=== PATIENT | male | born 1960 | race Caucasian/White ===

== ENCOUNTER 2017-04-01 14:12 | Inpatient (IN) | payer MEDICARE, MEDICAID ==
[~2017-04-01] VITALS: Ht 180.3 cm; Wt 72.4 kg
[2017-04-01] MEDS ORDERED: HYDROmorphONE 1 MG/ML SYG IV STA (14:20)
[2017-04-01] MEDS ORDERED: NITROGLYCERIN 2% 1 GM OINT PKT TD STA (14:20)
[2017-04-01] MEDS ORDERED: ONDANSETRON 4 MG INJ IV STA (14:20)
[2017-04-01] MEDS ORDERED: SOD CHLORIDE 0.9% 1,000 ML IV STA (14:30)
[2017-04-01] MEDS ORDERED: NITROGLYCERIN (SL) 0.4 MG TAB SL PRN ×2 (14:30→17:00)
[2017-04-01 14:46] LABS: ADD SCAN DIFF NO
[2017-04-01 14:51] LABS: BASOPHILS % 0.3 % (0.0-2.0); EOSINOPHILS # 0.1 10^3/ul (0.0-0.5); EOSINOPHILS % 0.9 % (0.0-7.0); HEMATOCRIT 43.3 % (42.0-52.0); HEMOGLOBIN 15.4 g/dl (14.0-18.0); LYMPHOCYTES # 2.2 10^3/ul (0.8-2.9); LYMPHOCYTES % 31.3 % (15.0-51.0); MEAN CORPUSCULAR HEMOGLOBIN 35.3 pg (29.0-33.0); MEAN CORPUSCULAR HGB CONC 35.6 g/dl (32.0-37.0); MEAN CORPUSCULAR VOLUME 99.3 fl (82.0-101.0); MEAN PLATELET VOLUME 9.9 fl (7.4-10.4); MONOCYTE # 0.5 10^3/ul (0.3-0.9); MONOCYTES % 7.5 % (0.0-11.0); NEUTROPHIL # 4.2 10^3/ul (1.6-7.5); NEUTROPHILS % 59.6 % (39.0-77.0); PLATELET COUNT 182 10^3/UL (140-415); RED BLOOD COUNT 4.36 10^6/ul (4.70-6.10); RED CELL DISTRIBUTION WIDTH 13.4 % (11.5-14.5); WHITE BLOOD COUNT 7.1 10^3/ul (4.8-10.8)
--- NOTE | 2017-04-01 14:58 | RADRPT ---
PROCEDURE: XR Chest. CLINICAL INDICATION: chest pain TECHNIQUE: Single frontal view of the chest was obtained COMPARISON: None FINDINGS: The heart and mediastinum are within normal limits. There is mild right lower lobe linear atelectasis. The lungs are otherwise clear. There is no pleural effusion or pneumothorax. RPTAT: AA IMPRESSION: Mild right lower lobe linear atelectasis. .Kyle Berrios MD, MD Date Time Electronically viewed and signed by .Kyle Berrios MD, on 04/01/2017 14:57 .S/
[2017-04-01 15:11] LABS: INR 0.93; PROTIME 12.5 Sec (12.2-14.2)
[2017-04-01 15:12] LABS: ANION GAP 21 (8-16); BLOOD UREA NITROGEN 14 mg/dl (7-20); CARBON DIOXIDE 25 mmol/L (21-31); CHLORIDE 105 mmol/L (97-110); CREATININE 1.01 mg/dl (0.61-1.24); GLUCOSE 120 mg/dl (70-220); POTASSIUM 3.9 mmol/L (3.5-5.1); SODIUM 147 mmol/L (135-144)
[2017-04-01 15:13] LABS: PARTIAL THROMBOPLASTIN TIME 31.3 Sec (25.0-35.0)
[2017-04-01] MEDS ORDERED: SIN25100 PO (15:21)
[2017-04-01] MEDS ORDERED: LEVE-5 PO (15:21)
[2017-04-01] MEDS ORDERED: RANI150T5 PO (15:22)
[2017-04-01] MEDS ORDERED: QUET100T PO (15:22)
[2017-04-01] MEDS ORDERED: TEMA30CA PO (15:23)
[2017-04-01] MEDS ORDERED: AMIT50TA3 PO (15:23)
[2017-04-01] MEDS ORDERED: LACT10SO5 PO (15:24)
[2017-04-01] MEDS ORDERED: MAGN400T27 PO (15:25)
[2017-04-01] MEDS ORDERED: ACLI400A2 IH (15:26)
[2017-04-01] MEDS ORDERED: OMEG1CAP55 PO (15:26)
[2017-04-01] MEDS ORDERED: NIT4 SL (15:27)
[2017-04-01] MEDS ORDERED: ZOF8 PO (15:27)
[2017-04-01] MEDS ORDERED: SIMV20TA PO (15:27)
[2017-04-01 15:28] LABS: TROPONIN-I < 0.012 ng/ml (0.00-0.12)
[2017-04-01] MEDS ORDERED: ESCI20TA PO (15:28)
[2017-04-01] MEDS ORDERED: HYDR-906 PO (15:28)
[2017-04-01] MEDS ORDERED: HYD25 PO (15:29)
[2017-04-01] MEDS ORDERED: TIZA4TAB PO (15:29)
[2017-04-01] MEDS ORDERED: ADV25050 INHALATION (15:30)
[2017-04-01] MEDS ORDERED: BEN50 PO (15:30)
[2017-04-01] MEDS ORDERED: ALBU18HF INHALATION (15:30)
[2017-04-01] MEDS ORDERED: OMEP20CA16 PO (15:31)
--- NOTE | 2017-04-01 15:40 | RADRPT ---
PROCEDURE: CT Brain without. CLINICAL INDICATION: Headache. Recent intracranial hemorrhage. TECHNIQUE: A CT of the brain was performed on a multi-slice CT scanner utilizing axial sections fr om the skull base through the vertex without contrast. Coronal and sagittal reconstructed images w ere provided. One or more of the following does reduction techniques were used: Automated exposure control; adjustment of the mA and/or kV according to patient size; use of the aorta of reconstructi on technique. Images were reviewed on a high-resolution PACS workstation. The exam CTDI = 45.01 mGy . The exam DLP = 810.25 mGy-cm. COMPARISON: None available FINDINGS: Study is limited by motion. Per technologist, the patient does not follow commands. There is mild global volume loss. The ventricles and sulci are symmetric in size and morphology. There is no mickey dence of intracranial hemorrhage, mass effect, edema or midline shift. No abnormal intra-axial or e xtra-axial fluid collections are seen. The wadsworth/white matter differentiation is well preserved. There is a small left posterior sphenoid mucosal retention cyst versus polyp. The paranasal sinuses are otherwise clear.. The mastoid air cells are clear. The surrounding soft tissue scalp and bony calvarium are intact and normal. IMPRESSION: 1. Study limited by motion artifact. 2. No evidence of intracranial hemorrhage. Recommend correlation with prior imaging. 3. No CT evidence of acute intracranial pathology. 4. Mild global volume loss 5. Small left sphenoid mucosal retention cyst or polyp. RPTAT: HJBF .Homero Vasquez MD, MD Date Time Electronically viewed and signed by .Homero Vasquez MD, MD on 04/01/2017 15:39 .B/
[2017-04-01 16:24] LABS: BARBITURATES Negative (NEGATIVE); BENZODIAZEPINES Positive (NEGATIVE); CANNABINOIDS Negative (NEGATIVE); COCAINE Negative (NEGATIVE)
[2017-04-01] MEDS ORDERED: ACETAMINOPHEN 325 MG TAB PO PRN (16:30)
[2017-04-01] MEDS ORDERED: ONDANSETRON 4 MG INJ IV PRN (16:30)
[2017-04-01 16:32] LABS: OPIATES Negative (NEGATIVE)
--- NOTE | 2017-04-01 16:46 | HP ---
Date/Time of Note Date/Time of Note DATE: 04/01/17 TIME: 16:40 Assessment/Plan VTE Prophylaxis VTE Prophylaxis Intervention: LMWH Lines/Catheters IV Catheter Type (from [facility]): Saline Lock Assessment/Plan Assessment/Plan 57 yo M with CP x 3days managed as follows 1. Chest pain r/o ACS 2. HTN 3. Multisubstance abuse (tobacco / meth) 4. Dyslipidemia 5. Bipolar d/o 6. GERD 7. COPD without exacerbation 8. Parkinson's PLAN: Telemetry admission, trend cardiac enzymes, 2d echo if none recently and possible cardiology consult for stress test. oxygen and nitroglycerin therapy as needed. Daily aspirin if no allergy or bleeding risk. Get lipid profile, magnesium and TSH levels in am. Substance use / tobacco Cessation Therapy: Pt. was lectured for greater than 3 minutes on the health risks of continued smoking and the benefits of cessation and this will continue to be reinforced throughout hospitalization. HPI/ROS Admit Date/Time Admit Date/Time 04/01/17 Hx of Present Illness 57-year-old male with a history of high blood pressure and dyslipidemia who comes into the emergency room today with complaints of 3 day history of anterior chest pain that is described as achy and intermittent. Patient does admit to regular amphetamine use, last use was yesterday. Pain is associated with occasional shortness of breath, no diaphoresis. Pain does affect his activity of daily living. Pain was relieved with medication given in the emergency room. Patient denies fever, cough, palpitations, dizziness, or syncopal episodes. Patient denies abdominal pain, dysuria or hematuria. Brain CT was done because patient had reported recent head bleed, however negative ROS 12 point review if systems was done and pertinent findings are as noted. PMH/Family/Social Past Medical History * Bipolar d/o * GERD * COPD * Parkinson's Medical History: high cholesterol, hypertension Social History Alcohol Use: occasionally Smoking Status: Current every day smoker Drug Use: other (meth) Exam/Review of Systems Vital Signs Vitals VS - Last 72 Hours, by Label Date Time Temp Pulse Resp B/P Pulse Ox O2 Delivery O2 Flow Rate FiO2 04/01/17 14:48 Nasal Cannula 2 04/01/17 14:14 98.7 72 22 143/89 98 Vital Signs Date Time Temp Pulse Resp B/P Pulse Ox O2 Delivery O2 Flow Rate FiO2 04/01/17 14:48 Nasal Cannula 2 04/01/17 14:14 98.7 72 22 143/89 98 Exam Exam Constitutional: alert, oriented Head: atraumatic, normocephalic Neck: non-tender, supple Respiratory: clear to auscultation Cardiovascular: regular rate and rhythm Gastrointestinal: S/ NT / ND / +BS Extremities: no edema, good radial pulses Labs Result Diagram: 04/01/17 1440 04/01/17 1440 Medications Medications Current Medications Lorazepam (Ativan) 1 mg ONCE ONCE IV ; Start 04/01/17 at 17:00; Stop 04/01/17 at 17:01 Procedures Procedures Laboratory Tests Test 04/01/17 14:40 04/01/17 15:45 White Blood Count 7.110^3/ul Red Blood Count 4.3610^6/ul Hemoglobin 15.4g/dl Hematocrit 43.3% Mean Corpuscular Volume 99.3fl Mean Corpuscular Hemoglobin 35.3pg Mean Corpuscular Hemoglobin Concent 35.6g/dl Red Cell Distribution Width 13.4% Platelet Count 78534^3/UL Mean Platelet Volume 9.9fl Neutrophils % 59.6% Lymphocytes % 31.3% Monocytes % 7.5% Eosinophils % 0.9% Basophils % 0.3% Nucleated Red Blood Cells % 0.0/100WBC Neutrophils # 4.210^3/ul Lymphocytes # 2.210^3/ul Monocytes # 0.510^3/ul Eosinophils # 0.110^3/ul Basophils # 0.010^3/ul Nucleated Red Blood Cells # 0.010^3/ul Prothrombin Time 12.5Sec Prothrombin Time Ratio 1.0 INR International Normalized Ratio 0.93 Activated Partial Thromboplast Time 31.3Sec Sodium Level 147mmol/L Potassium Level 3.9mmol/L Chloride Level 105mmol/L Carbon Dioxide Level 25mmol/L Anion Gap 21 Blood Urea Nitrogen 14mg/dl Creatinine 1.01mg/dl Glucose Level 120mg/dl Calcium Level 10.0mg/dl Troponin I < 0.012ng/ml Urine Opiates Screen Negative Urine Barbiturates Negative Urine Amphetamines Screen Negative Urine Benzodiazepines Screen Positive Urine Cocaine Screen Negative Urine Cannabinoids Negative Current Medications Medications (Trade) Dose Ordered Sig/Francie Route PRN Reason Start Time Stop Time Status Last Admin Dose Admin Nitroglycerin (Nitroglycerin 2% Oint) 1 inch ONCE STAT TD 04/01/17 14:20 04/01/17 14:21 DC 04/01/17 14:46 1 INCH Nitroglycerin (Nitroglycerin (Sl Tab) 0.4 Mg) 1 tab Q5M UP TO 3 DOSES PRN SL CHEST PAIN 04/01/17 14:30 04/01/17 14:44 1 TAB Hydromorphone HCl (Dilaudid) 1 mg ONCE STAT IV 04/01/17 14:20 04/01/17 14:21 DC 04/01/17 14:43 1 MG Ondansetron HCl 4 mg 4 mg ONCE STAT IV 04/01/17 14:20 04/01/17 14:21 DC 04/01/17 14:44 4 MG Sodium Chloride (NS) 1,000 ml @ 1,000 mls/hr Q1H STAT IV 04/01/17 14:30 04/01/17 15:29 DC 04/01/17 14:48 1,000 MLS/HR Ondansetron HCl (Zofran Inj) 4 mg ER BRIDGE PRN IV NAUSEA AND/OR VOMITING 04/01/17 16:30 04/02/17 16:29 Acetaminophen (Tylenol Tab) 650 mg ER BRIDGE PRN PO MILD PAIN/FEVER 04/01/17 16:30 04/02/17 16:29 Lorazepam (Ativan) 1 mg ONCE ONCE IV 04/01/17 17:00 04/01/17 17:01 PROCEDURE: XR Chest. CLINICAL INDICATION: chest pain TECHNIQUE: Single frontal view of the chest was obtained COMPARISON: None FINDINGS: The heart and mediastinum are within normal limits. There is mild right lower lobe linear atelectasis. The lungs are otherwise clear. There is no pleural effusion or pneumothorax. RPTAT: AA IMPRESSION: Mild right lower lobe linear atelectasis. .Kyle Berrios MD, MD Date Time Electronically viewed and signed by .Kyle Berrios MD, MD on 04/01/2017 14: 57 .S/ CC: MADISON CONNER MD PROCEDURE: CT Brain without. CLINICAL INDICATION: Headache. Recent intracranial hemorrhage. TECHNIQUE: A CT of the brain was performed on a multi-slice CT scanner utilizing axial sections from the skull base through the vertex without contrast. Coronal and sagittal reconstructed images were provided. One or more of the following does reduction techniques were used: Automated exposure control; adjustment of the mA and/or kV according to patient size; use of the aorta of reconstruction technique. Images were reviewed on a high-resolution PACS workstation. The exam CTDI = 45.01 mGy. The exam DLP = 810.25 mGy-cm. COMPARISON: None available FINDINGS: Study is limited by motion. Per technologist, the patient does not follow commands. There is mild global volume loss. The ventricles and sulci are symmetric in size and morphology. There is no evidence of intracranial hemorrhage, mass effect, edema or midline shift. No abnormal intra-axial or extra-axial fluid collections are seen. The wadsworth/white matter differentiation is well preserved. There is a small left posterior sphenoid mucosal retention cyst versus polyp. The paranasal sinuses are otherwise clear.. The mastoid air cells are clear. The surrounding soft tissue scalp and bony calvarium are intact and normal. IMPRESSION: 1. Study limited by motion artifact. 2. No evidence of intracranial hemorrhage. Recommend correlation with prior imaging. 3. No CT evidence of acute intracranial pathology. 4. Mild global volume loss 5. Small left sphenoid mucosal retention cyst or polyp. RPTAT: HJBF .Homero Vasquez MD, MD Date Time Electronically viewed and signed by .Homero Vasquez MD, MD on 2016 15:39 .B/ CC: MADISON CONNER MD, B[place]AT[place] M. Apr 01, 2017 16:46
[2017-04-01] MEDS ORDERED: TIZANIDINE 4 MG TAB PO PRN (17:00)
[2017-04-01] MEDS ORDERED: LORAZEPAM 2 MG INJ IV ONE (17:00)
[2017-04-01] MEDS ORDERED: DIPHENHYDRAMINE 50 MG CAP PO PRN (17:00)
[2017-04-01] MEDS ORDERED: ALBUTEROL 18 GM INHALER INH PRN (17:00)
[2017-04-01 17:14] VITALS: TEMP 98.2
[2017-04-01 17:25] VITALS: BP 110/60; PULSE 66; RESP 18
--- NOTE | 2017-04-01 17:37 | ERA ---
ER Documentation Chief Complaint Date/Time DATE: 04/01/17 TIME: 17:34 Chief Complaint CHEST PAIN FOR THE PAST 3 DAYS.NO COUGH OR CONGESTION. N/N NOTED. HPI Patient is a 57-year-old male with hypertension and coronary disease who presents with chest pain. The patient came from [facility]. He was brought in by ambulance. He says "I still have a headache in my brain was bleeding a few days ago". He has vomiting as well. He was sent to the ER because of chest pain which lasted 4 days. He also says that he cannot keep anything down because of the vomiting. Upon review of old medical records this is the patient's first visit to the emergency department. He does not know the name of his primary doctor. ROS All systems reviewed and are negative except as per history of present illness. Medications Home Meds Reported Medications Omeprazole* (Omeprazole*) 20 Mg Capsule.dr, 20 MG PO DAILY, #30 CAP 04/01/17 Diphenhydramine Hcl* (Benadryl*) 50 Mg Cap, 50 MG PO TID Y for ITCHING, CAP 04/01/17 Salmeterol Xinaf/Fluticasone* (Advair*) 250-50 Diskus Inhaler, 1 INH INHALATION BID, #1 INHALER 04/01/17 Albuterol Sulfate* (Ventolin HFA*) 18 Gm Hfa.aer.ad, 2 PUFF INHALATION TID Y for SHORTNESS OF BREATH, #1 INHALER 04/01/17 Hydrochlorothiazide* (Hydrochlorothiazide*) 25 Mg Tab, 25 MG PO DAILY, #30 TAB 04/01/17 Tizanidine Hcl* (Tizanidine Hcl*) 4 Mg Tablet, 4 MG PO Q8H Y for SPASTICITY, TAB 04/01/17 Hydrocodone/Acetaminophen ([place] 5-325 Tablet) 1 Each Tablet, 1 EACH PO Q6 Y for PAIN, TAB 04/01/17 Escitalopram Oxalate* (Lexapro*) 20 Mg Tablet, 20 MG PO DAILY, #30 TAB 04/01/17 Ondansetron Hcl* (Zofran*) 8 Mg Tab, 8 MG PO Q8 Y for NAUSEA AND/OR VOMITING, TAB 04/01/17 Simvastatin* (Zocor*) 20 Mg Tablet, 20 MG PO QHS, #30 TAB 04/01/17 Nitroglycerin* (Nitrostat*) 0.4 Mg Tab.subl, 0.4 MG SL Q5MIN Y for CHEST PAIN, BOTTLE 04/01/17 Aclidinium [place] (Tudorza Pressair) 400 Mcg Aer.pow.ba, 400 MCG IH BID, EA 04/01/17 [place]-3/Dha/Epa/Fish Oil (FISH OIL EC 1,000 MG SOFTGEL) 1 Each Capsule.dr, 4 EACH PO DAILY 04/01/17 Magnesium Oxide* (Mag-Oxide*) 400 Mg Tablet, 250 MG PO BID, TAB 04/01/17 Lactulose* (Lactulose*) 10 Gm/15 Ml Solution, 10 GM PO BID, ML 04/01/17 Temazepam* (Temazepam*) 30 Mg Capsule, 30 MG PO HS Y for INSOMNIA, CAP 04/01/17 Amitriptyline Hcl* (Amitriptyline Hcl*) 50 Mg Tablet, 50 MG PO QHS, #30 TAB 04/01/17 Ranitidine Hcl* (Ranitidine Hcl*) 150 Mg Tablet, 150 MG PO Q12, #60 TAB 04/01/17 Quetiapine Fumarate* (Seroquel*) 100 Mg Tablet, 100 MG PO HS, #30 TAB 04/01/17 Carbidopa-Levodopa* (Sinemet*) 25-100 Mg Tab, 1 TAB PO TID, TAB 04/01/17 Levetiracetam* (Keppra*) 500 Mg Tablet, 500 MG PO BID, TAB 04/01/17 Allergies Allergies: Coded Allergies: No Known Allergy (Unverified , 04/01/17) PMhx/Soc History of Surgery: Yes (HERNIA ) Anesthesia Reaction: No Hx Cardiac Disorders: Yes (HTN) Hx Miscellaneous Medical Probl: Yes (GERD, CP) Hx Alcohol Use: Yes Hx Substance Use: Yes Hx Tobacco Use: Yes Smoking Status: Current every day smoker FmHx Family History: coronary disease Physical Exam Vitals Vital Signs Date Time Temp Pulse Resp B/P Pulse Ox O2 Delivery O2 Flow Rate FiO2 04/01/17 17:14 98.2 67 20 109/67 99 Room Air 04/01/17 16:23 98.7 68 22 109/67 98 04/01/17 14:48 Nasal Cannula 2 04/01/17 14:14 98.7 72 22 143/89 98 Physical Exam Const: Moderate distress secondary to vomiting Head: Atraumatic Eyes: Normal Conjunctiva ENT: Normal External Ears, Nose and Mouth. Neck: Full range of motion..~ No meningismus. Resp: Clear to auscultation bilaterally Cardio: Regular rate and rhythm, no murmurs Abd: Soft, non tender, non distended. Normal bowel sounds Skin: Diaphoresis Back: No midline or flank tenderness Ext: No cyanosis, or edema Neur: Awake and alert Psych: Normal Mood and Affect Result Diagram: 04/01/17 1440 04/01/17 1440 Results 24 hrs Laboratory Tests Test 04/01/17 14:40 04/01/17 15:45 White Blood Count 7.110^3/ul Red Blood Count 4.3610^6/ul Hemoglobin 15.4g/dl Hematocrit 43.3% Mean Corpuscular Volume 99.3fl Mean Corpuscular Hemoglobin 35.3pg Mean Corpuscular Hemoglobin Concent 35.6g/dl Red Cell Distribution Width 13.4% Platelet Count 99628^3/UL Mean Platelet Volume 9.9fl Neutrophils % 59.6% Lymphocytes % 31.3% Monocytes % 7.5% Eosinophils % 0.9% Basophils % 0.3% Nucleated Red Blood Cells % 0.0/100WBC Neutrophils # 4.210^3/ul Lymphocytes # 2.210^3/ul Monocytes # 0.510^3/ul Eosinophils # 0.110^3/ul Basophils # 0.010^3/ul Nucleated Red Blood Cells # 0.010^3/ul Prothrombin Time 12.5Sec Prothrombin Time Ratio 1.0 INR International Normalized Ratio 0.93 Activated Partial Thromboplast Time 31.3Sec Sodium Level 147mmol/L Potassium Level 3.9mmol/L Chloride Level 105mmol/L Carbon Dioxide Level 25mmol/L Anion Gap 21 Blood Urea Nitrogen 14mg/dl Creatinine 1.01mg/dl Glucose Level 120mg/dl Calcium Level 10.0mg/dl Troponin I < 0.012ng/ml Urine Opiates Screen Negative Urine Barbiturates Negative Urine Amphetamines Screen Negative Urine Benzodiazepines Screen Positive Urine Cocaine Screen Negative Urine Cannabinoids Negative Current Medications Medications (Trade) Dose Ordered Sig/Francie Route PRN Reason Start Time Stop Time Status Last Admin Dose Admin Nitroglycerin (Nitroglycerin 2% Oint) 1 inch ONCE STAT TD 7/10/17 14:20 04/01/17 14:21 DC 04/01/17 14:46 Nitroglycerin (Nitroglycerin (Sl Tab) 0.4 Mg) 1 tab Q5M UP TO 3 DOSES PRN SL CHEST PAIN 04/01/17 14:30 04/01/17 14:44 Hydromorphone HCl (Dilaudid) 1 mg ONCE STAT IV 04/01/17 14:20 04/01/17 14:21 DC 04/01/17 14:43 Ondansetron HCl 4 mg 4 mg ONCE STAT IV 04/01/17 14:20 04/01/17 14:21 DC 04/01/17 14:44 Sodium Chloride (NS) 1,000 ml @ 1,000 mls/hr Q1H STAT IV 04/01/17 14:30 04/01/17 15:29 DC 04/01/17 14:48 Ondansetron HCl (Zofran Inj) 4 mg ER BRIDGE PRN IV NAUSEA AND/OR VOMITING 04/01/17 16:30 04/02/17 16:29 Acetaminophen (Tylenol Tab) 650 mg ER BRIDGE PRN PO MILD PAIN/FEVER 04/01/17 16:30 04/02/17 16:29 Lorazepam (Ativan) 1 mg ONCE ONCE IV 04/01/17 17:00 04/01/17 17:01 DC 04/01/17 17:09 Albuterol (Proventil (O.r. Use Only)) 2 puff TID PRN ZFS SHORTNESS OF BREATH 04/01/17 17:00 UNV Amitriptyline HCl (Elavil) 50 mg QHS PO 04/01/17 21:00 UNV Carbidopa/Levodopa (Sinemet (25/ 100)) 1 tab TID PO 04/01/17 21:00 UNV Diphenhydramine HCl (Benadryl) 50 mg TID PRN PO ITCHING 04/01/17 17:00 UNV Escitalopram Oxalate (Lexapro) 20 mg DAILY PO 04/02/17 09:00 UNV Hydrochlorothiazide (Hydrochlorothiazide) 25 mg DAILY PO 04/02/17 09:00 UNV Acetaminophen/ Hydrocodone Bitart ([place] (5/325)) 1 tab Q6 PRN PO PAIN 04/01/17 17:00 UNV Lactulose (Enulose) 10 gm BID PO 04/01/17 21:00 UNV Levetiracetam (Keppra) 500 mg BID PO 04/01/17 21:00 UNV Magnesium Oxide (Mag-Ox 400) 250 mg BID PO 04/01/17 21:00 UNV Nitroglycerin (Nitroglycerin (Sl Tab) 0.4 Mg) 1 tab [id number] PRN SL CHEST PAIN 04/01/17 17:00 UNV Fish Oil (Fish Oil) 1,000 mg DAILY PO 04/02/17 09:00 UNV Quetiapine Fumarate (Seroquel) 100 mg HS PO 04/01/17 21:00 UNV Ranitidine HCl (Zantac) 150 mg Q12 PO 04/01/17 21:00 UNV Salmeterol Xinafoate/ Fluticasone (Advair 250/50 Diskus) 1 inh BID INH 04/01/17 21:00 UNV Tizanidine HCl (Zanaflex) 4 mg Q8H PRN PO SPASTICITY 04/01/17 17:00 UNV Miscellaneous Information 20 mg QHS PO 04/01/17 21:00 UNV Miscellaneous Information 30 mg HS PRN PO INSOMNIA 04/01/17 17:00 UNV Procedures/MDM EKG #1 read by me: Rate/Rhythm: Regular rate and rhythm at a normal rate Intervals: Normal Impression: No evidence of ischemia or arrhythmia EKG #2 read by me: Rate/Rhythm: Regular rate and rhythm at a normal rate Intervals: Normal Impression: No evidence of ischemia or arrhythmia Chest x-ray shows no pneumonia or pneumothorax per radiology. CT brain negative for intracranial bleed per radiology. Smoking Cessation Therapy: Pt. was lectured for greater than 3 minutes on the health risks of continued smoking and the benefits of cessation. Patient is a 57-year-old male with multiple cardiac risk factors including coronary disease, hypertension, family history of coronary disease, and smoking who presents with chest pain. The patient was given aspirin, nitroglycerin, and Dilaudid for pain. The patient will need further workup for the cause of his chest pain as I am concerned for potential acute coronary syndrome. I doubt pneumonia, pneumothorax, pulmonary elbows on, or aortic dissection at this time. CT scan of the brain was negative for intracranial bleed. I spoke with Dr. Vale from the panel team for admission as the patient has never been admitted before. Departure Diagnosis: Primary Impression: Chest pain Qualified Code: R07.9 - Chest pain, unspecified type Condition: MADISON Rosario MD Apr 01, 2017 17:37
[2017-04-01 18:18] LABS: ALBUMIN 5.2 g/dl (3.3-4.9); BILIRUBIN,INDIRECT 0.5 mg/dl (0-1.1); BILIRUBIN,TOTAL 0.5 mg/dl (0.2-1.3); TOTAL PROTEIN 7.7 g/dl (6.1-8.1)
[2017-04-01 18:36] VITALS: Ht 180.3 cm; Wt 72.4 kg
[2017-04-01] MEDS ORDERED: ZOLPIDEM 5 MG TAB PO PRN (19:00)
[2017-04-01 19:38] VITALS: BP 123/58; RESP 20
[2017-04-01 21:16] VITALS: PULSE 62
[2017-04-01] MEDS: AMITRIPTYLINE 50 MG TAB PO SCH (21:29)
[2017-04-01] MEDS: CARBIDOPA/LEVODOPA (25/100) TAB PO SCH (21:29)
[2017-04-01] MEDS: ATORVASTATIN 10 MG TAB PO SCH (21:29)
[2017-04-01] MEDS: LEVETIRACETAM 500 MG TAB PO SCH (21:29)
[2017-04-01] MEDS: RANITIDINE 150 MG TAB PO SCH (21:29)
[2017-04-01] MEDS: MAGNESIUM OXIDE 400 MG TAB PO SCH (21:29)
[2017-04-01] MEDS: LACTULOSE 30ML CUP PO SCH (21:29)
[2017-04-01] MEDS: QUETIAPINE 100 MG TAB PO SCH (21:29)
[2017-04-01] MEDS: SALMETEROL/FLUTICASONE 250/50 INHA INH SCH (21:30)
[2017-04-01 22:51] LABS: CREATINE KINASE 43 IU/L (23-200)
[2017-04-01 23:00] LABS: TROPONIN-I < 0.012 ng/ml (0.00-0.12)
[2017-04-02] VITALS (13 sets, daily range): BP systolic 87–113; BP diastolic 50–58; PULSE 43–76; RESP 18–20
[2017-04-02 03:13] LABS: CREATINE KINASE 34 IU/L (23-200)
[2017-04-02 03:27] LABS: TROPONIN-I < 0.012 ng/ml (0.00-0.12)
[2017-04-02] MEDS: RANITIDINE 150 MG TAB PO SCH ×2 (08:35→21:55)
[2017-04-02] MEDS: ESCITALOPRAM 10 MG TAB PO SCH (08:36)
[2017-04-02] MEDS: MAGNESIUM OXIDE 400 MG TAB PO SCH ×2 (08:36→21:55)
[2017-04-02] MEDS: FISH OIL 1,000 MG CAP PO SCH (08:36)
[2017-04-02] MEDS: LEVETIRACETAM 500 MG TAB PO SCH ×2 (08:36→21:55)
[2017-04-02] MEDS: LACTULOSE 30ML CUP PO SCH ×2 (08:37→21:55)
[2017-04-02] MEDS: SALMETEROL/FLUTICASONE 250/50 INHA INH SCH ×2 (08:37→21:55)
[2017-04-02] MEDS: CARBIDOPA/LEVODOPA (25/100) TAB PO SCH ×3 (08:37→21:55)
[2017-04-02] MEDS: HYDROCHLOROTHIAZIDE 25 MG TAB PO SCH (08:38)
[2017-04-02 09:38] LABS: ADD SCAN DIFF NO
[2017-04-02 09:45] LABS: BASOPHILS % 0.4 % (0.0-2.0); EOSINOPHILS # 0.1 10^3/ul (0.0-0.5); EOSINOPHILS % 0.9 % (0.0-7.0); HEMATOCRIT 39.2 % (42.0-52.0); HEMOGLOBIN 13.2 g/dl (14.0-18.0); LYMPHOCYTES # 1.6 10^3/ul (0.8-2.9); LYMPHOCYTES % 30.1 % (15.0-51.0); MEAN CORPUSCULAR HEMOGLOBIN 34.1 pg (29.0-33.0); MEAN CORPUSCULAR HGB CONC 33.7 g/dl (32.0-37.0); MEAN CORPUSCULAR VOLUME 101.3 fl (82.0-101.0); MONOCYTE # 0.3 10^3/ul (0.3-0.9); NEUTROPHIL # 3.3 10^3/ul (1.6-7.5); NEUTROPHILS % 62.2 % (39.0-77.0); PLATELET COUNT 173 10^3/UL (140-415); RED BLOOD COUNT 3.87 10^6/ul (4.70-6.10); RED CELL DISTRIBUTION WIDTH 13.6 % (11.5-14.5); WHITE BLOOD COUNT 5.3 10^3/ul (4.8-10.8)
[2017-04-02 10:06] LABS: CALCIUM 9.4 mg/dl (8.4-10.2); CHOL/HDL RATIO 3.2 RATIO; CREATININE 1.03 mg/dl (0.61-1.24); MAGNESIUM 2.1 mg/dl (1.7-2.5); POTASSIUM 3.7 mmol/L (3.5-5.1)
[2017-04-02 10:34] LABS: THYROID STIMULATING HORMONE 0.615 MIU/L (0.465-4.680)
[2017-04-02] MEDS: HYDROCODONE/APAP (5/325) TAB PO PRN (13:49)
--- NOTE | 2017-04-02 14:54 | PN ---
Date/Time of Note Date/Time of Note DATE: 04/02/17 TIME: 14:45 Assessment/Plan VTE Prophylaxis VTE Prophylaxis Intervention: SCD's Lines/Catheters IV Catheter Type (from Nrs): Saline Lock Urinary Cath still in place: Yes Reason Cath still needed: other (indicate) Assessment/Plan Assessment/Plan 1. Chest pain, atypical, negative troponin, follow up with cardiology 2. Bipolar disorder, on seroqal, psych eval 3. HTN, controlled 4. Multisubstance abuse (tobacco / meth) 5. Dyslipidemia, on lipitor 6. GERD 7. COPD, stable 8. Parkinson's disease, on sinemet Subjective 24 Hr Interval Summary Free Text/Dictation agitated and anxious Exam/Review of Systems Vital Signs Vitals Vital Signs Date Time Temp Pulse Resp B/P Pulse Ox O2 Delivery O2 Flow Rate FiO2 04/02/17 12:00 76 04/02/17 11:49 98.0 19 101/56 100 04/01/17 17:25 Room Air 04/01/17 14:48 2 Intake and Output 04/01/17 04/01/17 04/02/17 15:00 23:00 07:00 Intake Total 350 ml Output Total 550 ml Balance -200 ml Exam Constitutional: alert, distress, oriented Head: atraumatic, normocephalic Eyes: EOMI, PERRL, nl conjunctiva, nl lids ENMT: nl external ears & nose, nl lips & teeth, nl nasal mucosa & septum Neck: non-tender, supple Respiratory: clear to auscultation, normal air movement, No congested cough, No crackles/rales, No diminished breath sounds, No intercostal retraction, No labored breathing, No other, No respirations, No tactile fremitus, No wheezing Cardiovascular: nl pulses, regular rate and rhythm, No S3, No S4, No bruits, No diastolic murmur, No edema, No gallop, No irregular rhythm, No jugular venous distention (JVD), No murmurs/extra sounds, No other, No rub, No systolic murmur Gastrointestinal: nl liver, spleen, non-tender, soft, No ascites, No bowel sounds, No distended, No firm, No hepatomegaly, No mass , No other, No rebound or guarding, No splenomegaly, No surgical scars, No tender Musculoskeletal: nl extremities to inspection Extremities: normal pulses, No calf tenderness, No clubbing, No cyanosis, No edema, No other, No palpable cord, No pitting pedal edema, No tenderness Neurological: IRRIGATION INSTALLATION SPECIALIST II-XII intact, nl mental status, nl speech, nl strength Results Result Diagram: 04/02/17 0900 04/02/17 0900 Results 24 hrs Laboratory Tests Test 04/01/17 15:45 04/01/17 21:58 04/02/17 02:35 04/02/17 09:00 Urine Opiates Screen Negative Urine Barbiturates Negative Urine Amphetamines Screen Negative Urine Benzodiazepines Screen Positive Urine Cocaine Screen Negative Urine Cannabinoids Negative Creatine Kinase 43 34 Creatine Kinase Index 1.9 2.1 Creatinine Kinase MB (Mass) 0.80 0.70 Troponin I < 0.012 < 0.012 White Blood Count 5.3 # Red Blood Count 3.87 L Hemoglobin 13.2 L Hematocrit 39.2 L Mean Corpuscular Volume 101.3 H Mean Corpuscular Hemoglobin 34.1 H Mean Corpuscular Hemoglobin Concent 33.7 Red Cell Distribution Width 13.6 Platelet Count 173 Mean Platelet Volume 10.0 Neutrophils % 62.2 Lymphocytes % 30.1 Monocytes % 6.0 Eosinophils % 0.9 Basophils % 0.4 Nucleated Red Blood Cells % 0.0 Neutrophils # 3.3 Lymphocytes # 1.6 Monocytes # 0.3 Eosinophils # 0.1 Basophils # 0.0 Nucleated Red Blood Cells # 0.0 Sodium Level 138 Potassium Level 3.7 Chloride Level 106 Carbon Dioxide Level 26 Anion Gap 10 # Blood Urea Nitrogen 15 Creatinine 1.03 Glucose Level 83 Hemoglobin A1c 5.2 Calcium Level 9.4 Magnesium Level 2.1 Triglycerides Level 108 Cholesterol Level 113 LDL Cholesterol, Calculated 56 HDL Cholesterol 35 Cholesterol/HDL Ratio 3.2 Thyroid Stimulating Hormone (TSH) 0.615 Medications Medications Current Medications Albuterol (Ventolin Hfa) 2 puff Q8H PRN INH SHORTNESS OF BREATH; Start at 17:00 Amitriptyline HCl (Elavil) 50 mg QHS PO Last administered on 04/01/17 21:29; Admin Dose 50 MG; Start 04/01/17 at 21:00 Carbidopa/Levodopa (Sinemet (25/ 100)) 1 tab TID PO Last administered on 08:37; Admin Dose 1 TAB; Start 04/01/17 at 21:00 Diphenhydramine HCl (Benadryl) 50 mg TID PRN PO ITCHING; Start 04/01/17 at 17: 00 Escitalopram Oxalate (Lexapro) 20 mg DAILY PO Last administered on 04/02/17 08 :36; Admin Dose 20 MG; Start 04/02/17 at 09:00 Hydrochlorothiazide (Hydrochlorothiazide) 25 mg DAILY PO Last administered on 08:38; Admin Dose 25 MG; Start 04/02/17 at 09:00 Acetaminophen/ Hydrocodone Bitart ([place] (5/325)) 1 tab Q6 PRN PO PAIN Last administered on 04/02/17 13:49; Admin Dose 1 TAB; Start 04/01/17 at 17:00 Lactulose (Enulose) 10 gm BID PO Last administered on 04/02/17 08:37; Admin Dose 10 GM; Start 04/01/17 at 21:00 Levetiracetam (Keppra) 500 mg BID PO Last administered on 04/02/17 08:36; Admin Dose 500 MG; Start 04/01/17 at 21:00 Magnesium Oxide (Mag-Ox 400) 200 mg BID PO Last administered on 04/02/17 08:36 ; Admin Dose 200 MG; Start 04/01/17 at 21:00 Nitroglycerin (Nitroglycerin (Sl Tab) 0.4 Mg) 1 tab [id number] PRN SL CHEST PAIN ; Start 04/01/17 at 17:00 Fish Oil (Fish Oil) 1,000 mg DAILY PO Last administered on 04/02/17 08:36; Admin Dose 1,000 MG; Start 04/02/17 at 09:00 Quetiapine Fumarate (Seroquel) 100 mg HS PO Last administered on 04/01/17 21: 29; Admin Dose 100 MG; Start 04/01/17 at 21:00 Ranitidine HCl (Zantac) 150 mg Q12 PO Last administered on 04/02/17 08:35; Admin Dose 150 MG; Start 04/01/17 at 21:00 Salmeterol Xinafoate/ Fluticasone (Advair 250/50 Diskus) 1 inh BID INH Last administered on 04/02/17 08:37; Admin Dose 1 INH; Start 04/01/17 at 21:00 Tizanidine HCl (Zanaflex) 4 mg Q8H PRN PO SPASTICITY; Start 04/01/17 at 17:00 Atorvastatin Calcium (Lipitor) 10 mg DAILY@21 PO Last administered on 21:29; Admin Dose 10 MG; Start 04/01/17 at 21:00 VINH ZAVALETA MD Apr 02, 2017 14:53
[2017-04-02] MEDS ORDERED: LORAZEPAM 2 MG INJ IV ONE (15:00)
--- NOTE | 2017-04-02 15:09 | RADRPT ---
Echocardiogram Report Patient Name: ALFIE CASTRO Gender: Male Date: 1960 Study Date: 02-Apr-2017 Sign Carpenter: Manisha Cabral [facility] Location: [id number] Ref. Physician: VERN BRADSHAW Quality: Good Procedures: Transthoracic echocardiogram with complete 2D, M-Mode, and doppler examination. Indications: Chest Pain, meth user. 2D/M Mode Doppler Measurement Value Normal Ranges Measurement Value Normal Ranges LVIDd 2D 5.6 3.5 - 5.6 cm AV Peak Steven 1.8 m/sec LVIDs 2D 2.8 2.1 - 4.1 cm AV Peak PG 13.3 mmHg LVPWd 2D 0.9 0.6 - 1.1 cm LVOT Peak Steven 1.2 m/sec IVSd 2D 0.9 0.6 - 1.1 cm LVOT Peak PG 6.0 mmHg AoR Diam 2D 2.7 2.0 - 3.7 cm MV E Peak Steven 1.1 m/sec EDV 2D 152.8 cm3 MV A Peak Steven 1.2 m/sec ESV 2D 22.5 cm3 MV E/A 1.0 LA Dimen 2D 4.1 2.3 - 4.0 cm MV Decel Time 311 msec MV Decel [place] 4 MV E/A 1.0 TR Peak Steven 2.5 m/sec TR Peak PG 24.2 mmHg RVSP 34.0 mmHg Findings Left Ventricle: Normal left ventricular systolic function. Normal left ventricular cavity size. Normal left ventricular wall thickness. Ejection fraction is visually estimated at 65 - 70 %. Tissue Doppler/Mitral Doppler indices are consistent with impaired relaxation (Stage I diastolic dysfunction). Right Ventricle: Normal right ventricular size. Normal right ventricular systolic function. Left Atrium: There is mild enlargement of left atrium. Right Atrium: The right atrium is normal in size. Mitral Valve: Mitral valve leaflets appear mildly thickened. Moderate mitral annular calcification. Moderate mitral valve prolapse involving the posterior mitral leaflet. Moderate to severe mitral valve regurgitation. The regurgitation jet is eccentrically directed which may underestimate the severity of mitral regurgitation. Echogenic structure is seen on the mitral valve consistent with vegetation. Aortic Valve: Normal appearance of the aortic valve. No significant aortic stenosis or insufficiency. Tricuspid Valve: Normal appearance of the tricuspid valve. Estimated peak PA systolic pressure 34 mmHg. There is mild tricuspid regurgitation. Pulmonic Valve: Normal pulmonic valve appearance. Pericardium: Normal pericardium with no significant pericardial effusion. Aorta: Normal aortic root. IVC: Dilated IVC with respiratory collapse consistent with elevated right atrial pressure. Conclusions 1.Normal left ventricular systolic function. Normal left ventricular cavity size. Normal left ventricular wall thickness. Ejection fraction is visually estimated at 65 - 70 %. Tissue Doppler/Mitral Doppler indices are consistent with impaired relaxation (Stage I diastolic dysfunction). 2.There is mild enlargement of left atrium. 3.Mitral valve leaflets appear mildly thickened. Moderate mitral annular calcification. Moderate mitral valve prolapse involving the posterior mitral leaflet. Moderate to severe mitral valve regurgitation. The regurgitation jet is eccentrically directed which may underestimate the severity of mitral regurgitation. Echogenic structure is seen on the mitral valve, vegetation can not be ruled out. clinical correlation is required. 4.Normal appearance of the aortic valve. No significant aortic stenosis or insufficiency. 5.Normal appearance of the tricuspid valve. Estimated peak PA systolic pressure 34 mmHg. There is mild tricuspid regurgitation. 6.Dilated IVC with respiratory collapse consistent with elevated right atrial pressure. Electronically Signed By: Terence Connors 02-Apr-2017 15:08:30 -0700 Patient Name: ALFIE CASTRO Study Date: 02-Apr-2017 [id number]
--- NOTE | 2017-04-02 17:29 | PSY ---
Date/Time of Note Date/Time of Note DATE: 04/02/17 TIME: 17:20 Psychiatric Subjective Eval Consent Pt consented to telemedicine: Yes Subjective Evaluation Patient location: inpatient Chief Complaint: CHEST PAIN FOR THE PAST 3 DAYS.NO COUGH OR CONGESTION. N/N NOTED. Reason for consult: patient asked for it " I need my brain checked out" History of present illness Hx of bipolar affective disorder. He came in for CP. No cardiac cause was found hx was obtained from patient and RN Horacio. Patient stated that Ihe feels angry, out of control they are not giving him his psych meds. eats well. meds reviwed. He stated that he takes haldol 5mg TID with Klonopin 0.5mg TID and Seroquel 100mg BID. he denied recent use of ETOH or meth but has a hx . UTOX neg for meth, pos for benzo. he stated that he has not taken psych meds x 1 week, as a result he has been irritable, he cursed many times, staff gave him IV Ativan. Staff did nit report any agitation, SI, HI, .Was a bit loud here with me. Did use swear worrds. sleep: Ok Mood irritable Past psychiatric history as per HPIBipolar affective disorder he stated that " [place] fucked my brain out" Medical history Problems Medical Problems: (1) Chest pain Status: Acute Allergies: Coded Allergies: No Known Allergy (Unverified , 04/01/17) Substance Abuse Substance abuse history: Yes Social History Marital status: single Psychiatric Objective Eval Review of Systems: Review of Systems: Not Applicable Physical Examination: Physical Examination: Not Applicable Mental Status Examination: Appearance: Disheveled Eye Contact: Good Psychomotor Activity: Normal Behavior: Cooperative Speech: Pressured AFFECT: Intense Mood: Irritable Though Process: Linear Thought Content: Normal Suicidal: No Homicidal: No Orientation: x4 Cognition: Alert Insight: Intact Judgement: Intact Attention Span: Intact Laboratory Results Laboratory Tests Test 04/01/17 14:40 04/01/17 15:45 04/01/17 21:58 04/02/17 02:35 White Blood Count 7.110^3/ul Red Blood Count 4.3610^6/ul Hemoglobin 15.4g/dl Hematocrit 43.3% Mean Corpuscular Volume 99.3fl Mean Corpuscular Hemoglobin 35.3pg Mean Corpuscular Hemoglobin Concent 35.6g/dl Red Cell Distribution Width 13.4% Platelet Count 28229^3/UL Mean Platelet Volume 9.9fl Neutrophils % 59.6% Lymphocytes % 31.3% Monocytes % 7.5% Eosinophils % 0.9% Basophils % 0.3% Nucleated Red Blood Cells % 0.0/100WBC Neutrophils # 4.210^3/ul Lymphocytes # 2.210^3/ul Monocytes # 0.510^3/ul Eosinophils # 0.110^3/ul Basophils # 0.010^3/ul Nucleated Red Blood Cells # 0.010^3/ul Prothrombin Time 12.5Sec Prothrombin Time Ratio 1.0 INR International Normalized Ratio 0.93 Activated Partial Thromboplast Time 31.3Sec Sodium Level 147mmol/L Potassium Level 3.9mmol/L Chloride Level 105mmol/L Carbon Dioxide Level 25mmol/L Anion Gap 21 Blood Urea Nitrogen 14mg/dl Creatinine 1.01mg/dl Glucose Level 120mg/dl Calcium Level 10.0mg/dl Total Bilirubin 0.5mg/dl Direct Bilirubin 0.00mg/dl Indirect Bilirubin 0.5mg/dl Aspartate Amino Transf (AST/SGOT) 32IU/L Alanine Aminotransferase (ALT/SGPT) 36IU/L Alkaline Phosphatase 75IU/L Troponin I < 0.012ng/ml < 0.012ng/ml < 0.012ng/ml Total Protein 7.7g/dl Albumin 5.2g/dl Urine Opiates Screen Negative Urine Barbiturates Negative Urine Amphetamines Screen Negative Urine Benzodiazepines Screen Positive Urine Cocaine Screen Negative Urine Cannabinoids Negative Creatine Kinase 43IU/L 34IU/L Creatine Kinase Index 1.9 2.1 Creatinine Kinase MB (Mass) 0.80ng/ml 0.70ng/ml Test 04/02/17 09:00 White Blood Count 5.310^3/ul Red Blood Count 3.8710^6/ul Hemoglobin 13.2g/dl Hematocrit 39.2% Mean Corpuscular Volume 101.3fl Mean Corpuscular Hemoglobin 34.1pg Mean Corpuscular Hemoglobin Concent 33.7g/dl Red Cell Distribution Width 13.6% Platelet Count 94744^3/UL Mean Platelet Volume 10.0fl Neutrophils % 62.2% Lymphocytes % 30.1% Monocytes % 6.0% Eosinophils % 0.9% Basophils % 0.4% Nucleated Red Blood Cells % 0.0/100WBC Neutrophils # 3.310^3/ul Lymphocytes # 1.610^3/ul Monocytes # 0.310^3/ul Eosinophils # 0.110^3/ul Basophils # 0.010^3/ul Nucleated Red Blood Cells # 0.010^3/ul Sodium Level 138mmol/L Potassium Level 3.7mmol/L Chloride Level 106mmol/L Carbon Dioxide Level 26mmol/L Anion Gap 10 Blood Urea Nitrogen 15mg/dl Creatinine 1.03mg/dl Glucose Level 83mg/dl Hemoglobin A1c 5.2% Calcium Level 9.4mg/dl Magnesium Level 2.1mg/dl Triglycerides Level 108mg/dl Cholesterol Level 113mg/dl LDL Cholesterol, Calculated 56mg/dl HDL Cholesterol 35mg/dl Cholesterol/HDL Ratio 3.2RATIO Thyroid Stimulating Hormone (TSH) 0.615MIU/L Assessment and Plan Assessment/Diagnosis [place] I: Bipolar affective disorder hypomanic, ? psychotic features [place] II: deferred [place] III: as per internal medicine [place] IV: moderate [place] V: 40 Recommendation/Plan Medication Management Increase Seroquel to 100mg TID , add Klonopin 0.5mg TIS, continue Lexapro and Elavil at the current dose. I have not resumed haldol.If possible obtain records. Once medically cleared can be d/miguel f/u with his local psychiatrist Follow-up/Disposition as above TABITHA DAIGLE MD Apr 02, 2017 17:29
[2017-04-02] MEDS: ONDANSETRON 4 MG INJ IV PRN (21:45)
[2017-04-02] MEDS: ATORVASTATIN 10 MG TAB PO SCH (21:54)
[2017-04-02] MEDS: AMITRIPTYLINE 50 MG TAB PO SCH (21:55)
[2017-04-02] MEDS: QUETIAPINE 100 MG TAB PO SCH (21:55)
[2017-04-03] VITALS (12 sets, daily range): BP systolic 112–121; BP diastolic 56–66; PULSE 57–70; RESP 18–21
[2017-04-03] MEDS: FISH OIL 1,000 MG CAP PO SCH (08:56)
[2017-04-03] MEDS: SALMETEROL/FLUTICASONE 250/50 INHA INH SCH ×2 (08:56→20:42)
[2017-04-03] MEDS: LACTULOSE 30ML CUP PO SCH ×2 (08:56→20:43)
[2017-04-03] MEDS: HYDROCHLOROTHIAZIDE 25 MG TAB PO SCH (09:03)
[2017-04-03] MEDS: LEVETIRACETAM 500 MG TAB PO SCH ×2 (09:03→20:42)
[2017-04-03] MEDS: MAGNESIUM OXIDE 400 MG TAB PO SCH ×2 (09:04→20:43)
[2017-04-03] MEDS: CARBIDOPA/LEVODOPA (25/100) TAB PO SCH ×3 (09:04→20:42)
[2017-04-03] MEDS: RANITIDINE 150 MG TAB PO SCH ×2 (09:04→20:42)
[2017-04-03] MEDS: ESCITALOPRAM 10 MG TAB PO SCH (09:04)
[2017-04-03] MEDS: HYDROCODONE/APAP (5/325) TAB PO PRN (09:20)
[2017-04-03 11:37] LABS: ADD SCAN DIFF NO
[2017-04-03 11:40] LABS: BASOPHILS % 0.5 % (0.0-2.0); EOSINOPHILS # 0.1 10^3/ul (0.0-0.5); EOSINOPHILS % 1.2 % (0.0-7.0); HEMATOCRIT 41.1 % (42.0-52.0); HEMOGLOBIN 13.8 g/dl (14.0-18.0); LYMPHOCYTES # 0.9 10^3/ul (0.8-2.9); LYMPHOCYTES % 22.2 % (15.0-51.0); MEAN CORPUSCULAR HEMOGLOBIN 33.7 pg (29.0-33.0); MEAN CORPUSCULAR HGB CONC 33.6 g/dl (32.0-37.0); MEAN CORPUSCULAR VOLUME 100.5 fl (82.0-101.0); MEAN PLATELET VOLUME 9.8 fl (7.4-10.4); MONOCYTE # 0.3 10^3/ul (0.3-0.9); MONOCYTES % 7.5 % (0.0-11.0); NEUTROPHIL # 2.7 10^3/ul (1.6-7.5); NEUTROPHILS % 68.4 % (39.0-77.0); PLATELET COUNT 153 10^3/UL (140-415); RED BLOOD COUNT 4.09 10^6/ul (4.70-6.10); RED CELL DISTRIBUTION WIDTH 13.7 % (11.5-14.5)
[2017-04-03 12:04] LABS: CALCIUM 9.7 mg/dl (8.4-10.2); CREATININE 1.11 mg/dl (0.61-1.24); POTASSIUM 3.8 mmol/L (3.5-5.1)
[2017-04-03] MEDS: ONDANSETRON 4 MG INJ IV PRN (12:10)
[2017-04-03] MEDS: LORAZEPAM 1 MG TAB PO PRN (12:10)
[2017-04-03] MEDS ORDERED: clonAZEPAM 0.5 MG TAB PO PRN (14:30)
--- NOTE | 2017-04-03 14:30 | PN ---
Date/Time of Note Date/Time of Note DATE: 04/03/17 TIME: 14:27 Assessment/Plan VTE Prophylaxis VTE Prophylaxis Intervention: SCD's Lines/Catheters IV Catheter Type (from Nrsg): Peripheral IV Urinary Cath still in place: Yes Reason Cath still needed: other (indicate) Assessment/Plan Assessment/Plan 1. Chest pain, atypical, negative troponin 2. Bipolar disorder, increase seroqal, and klonopin 3. HTN, controlled 4. Multisubstance abuse (tobacco / meth) 5. Dyslipidemia, on lipitor 6. GERD 7. COPD, stable 8. Parkinson's disease, on sinemet Subjective 24 Hr Interval Summary Free Text/Dictation nervous, but better today. abdominal pain, chest discomfort Exam/Review of Systems Vital Signs Vitals Vital Signs Date Time Temp Pulse Resp B/P Pulse Ox O2 Delivery O2 Flow Rate FiO2 04/03/17 12:30 70 04/03/17 11:23 98.2 20 114/56 99 04/01/17 17:25 Room Air 04/01/17 14:48 2 Intake and Output 04/02/17 04/02/17 04/03/17 15:00 23:00 07:00 Intake Total 2500 ml 400 ml Output Total 1500 ml 750 ml Balance 1000 ml -350 ml Exam Constitutional: alert, oriented Head: atraumatic, normocephalic Eyes: EOMI, PERRL, nl conjunctiva, nl lids ENMT: nl external ears & nose, nl lips & teeth, nl nasal mucosa & septum Neck: supple Respiratory: clear to auscultation, normal air movement, No congested cough, No crackles/rales, No diminished breath sounds, No intercostal retraction, No labored breathing, No other, No respirations, No tactile fremitus, No wheezing Cardiovascular: nl pulses, regular rate and rhythm, No S3, No S4, No bruits, No diastolic murmur, No edema, No gallop, No irregular rhythm, No jugular venous distention (JVD), No murmurs/extra sounds, No other, No rub, No systolic murmur Gastrointestinal: nl liver, spleen, soft Musculoskeletal: nl extremities to inspection Extremities: normal pulses, No calf tenderness, No clubbing, No cyanosis, No edema, No other, No palpable cord, No pitting pedal edema, No tenderness Neurological: MEAT SLICER II-XII intact, nl mental status, nl speech, nl strength Results Result Diagram: 04/03/17 1052 04/03/17 1052 Results 24 hrs Laboratory Tests Test 04/03/17 10:52 White Blood Count 4.0 #L Red Blood Count 4.09 L Hemoglobin 13.8 L Hematocrit 41.1 L Mean Corpuscular Volume 100.5 Mean Corpuscular Hemoglobin 33.7 H Mean Corpuscular Hemoglobin Concent 33.6 Red Cell Distribution Width 13.7 Platelet Count 153 Mean Platelet Volume 9.8 Neutrophils % 68.4 Lymphocytes % 22.2 Monocytes % 7.5 Eosinophils % 1.2 Basophils % 0.5 Nucleated Red Blood Cells % 0.0 Neutrophils # 2.7 Lymphocytes # 0.9 Monocytes # 0.3 Eosinophils # 0.1 Basophils # 0.0 Nucleated Red Blood Cells # 0.0 Sodium Level 139 Potassium Level 3.8 Chloride Level 101 Carbon Dioxide Level 28 Anion Gap 14 Blood Urea Nitrogen 14 Creatinine 1.11 Glucose Level 103 Calcium Level 9.7 Medications Medications Current Medications Albuterol (Ventolin Hfa) 2 puff Q8H PRN INH SHORTNESS OF BREATH; Start at 17:00 Amitriptyline HCl (Elavil) 50 mg QHS PO Last administered on 04/02/17 21:55; Admin Dose 50 MG; Start 04/01/17 at 21:00 Carbidopa/Levodopa (Sinemet (25/ 100)) 1 tab TID PO Last administered on 12:10; Admin Dose 1 TAB; Start 04/01/17 at 21:00 Diphenhydramine HCl (Benadryl) 50 mg TID PRN PO ITCHING; Start 04/01/17 at 17: 00 Escitalopram Oxalate (Lexapro) 20 mg DAILY PO Last administered on 04/03/17 09 :04; Admin Dose 20 MG; Start 04/02/17 at 09:00 Hydrochlorothiazide (Hydrochlorothiazide) 25 mg DAILY PO Last administered on 09:03; Admin Dose 25 MG; Start 04/02/17 at 09:00 Acetaminophen/ Hydrocodone Bitart ([place] (5/325)) 1 tab Q6 PRN PO PAIN Last administered on 04/03/17 09:20; Admin Dose 1 TAB; Start 04/01/17 at 17:00 Lactulose (Enulose) 10 gm BID PO Last administered on 04/03/17 08:56; Admin Dose 10 GM; Start 04/01/17 at 21:00 Levetiracetam (Keppra) 500 mg BID PO Last administered on 04/03/17 09:03; Admin Dose 500 MG; Start 04/01/17 at 21:00 Magnesium Oxide (Mag-Ox 400) 200 mg BID PO Last administered on 04/03/17 09:04 ; Admin Dose 200 MG; Start 04/01/17 at 21:00 Nitroglycerin (Nitroglycerin (Sl Tab) 0.4 Mg) 1 tab [id number] PRN SL CHEST PAIN ; Start 04/01/17 at 17:00 Fish Oil (Fish Oil) 1,000 mg DAILY PO Last administered on 04/03/17 08:56; Admin Dose 1,000 MG; Start 04/02/17 at 09:00 Quetiapine Fumarate (Seroquel) 100 mg HS PO Last administered on 04/02/17 21: 55; Admin Dose 100 MG; Start 04/01/17 at 21:00 Ranitidine HCl (Zantac) 150 mg Q12 PO Last administered on 04/03/17 09:04; Admin Dose 150 MG; Start 04/01/17 at 21:00 Salmeterol Xinafoate/ Fluticasone (Advair 250/50 Diskus) 1 inh BID INH Last administered on 04/03/17 08:56; Admin Dose 1 INH; Start 04/01/17 at 21:00 Tizanidine HCl (Zanaflex) 4 mg Q8H PRN PO SPASTICITY; Start 04/01/17 at 17:00 Atorvastatin Calcium (Lipitor) 10 mg DAILY@21 PO Last administered on 21:54; Admin Dose 10 MG; Start 04/01/17 at 21:00 Lorazepam (Ativan) 1 mg Q6H PRN PO ANXIETY Last administered on 04/03/17 12:10 ; Admin Dose 1 MG; Start 04/02/17 at 15:00 Ondansetron HCl (Zofran Inj) 4 mg Q6H PRN IV NAUSEA AND/OR VOMITING Last administered on 04/03/17 12:10; Admin Dose 4 MG; Start 04/02/17 at 22:00 VINH ZAVALETA MD Apr 03, 2017 14:29
[2017-04-03] MEDS: QUETIAPINE 100 MG TAB PO SCH ×2 (16:10→22:57)
[2017-04-03] MEDS: ATORVASTATIN 10 MG TAB PO SCH (20:42)
[2017-04-03] MEDS: AMITRIPTYLINE 50 MG TAB PO SCH (20:43)
[2017-04-04] VITALS (10 sets, daily range): BP systolic 107–116; BP diastolic 51–92; PULSE 53–76; RESP 18–21
[2017-04-04] MEDS: SALMETEROL/FLUTICASONE 250/50 INHA INH SCH (08:43)
[2017-04-04] MEDS: LACTULOSE 30ML CUP PO SCH (08:43)
[2017-04-04] MEDS: FISH OIL 1,000 MG CAP PO SCH (08:44)
[2017-04-04] MEDS: HYDROCHLOROTHIAZIDE 25 MG TAB PO SCH (08:44)
[2017-04-04] MEDS: CARBIDOPA/LEVODOPA (25/100) TAB PO SCH ×2 (08:45→13:58)
[2017-04-04] MEDS: LEVETIRACETAM 500 MG TAB PO SCH (08:45)
[2017-04-04] MEDS: ESCITALOPRAM 10 MG TAB PO SCH (08:45)
[2017-04-04] MEDS: QUETIAPINE 100 MG TAB PO SCH ×2 (08:45→13:58)
[2017-04-04] MEDS: MAGNESIUM OXIDE 400 MG TAB PO SCH (08:45)
[2017-04-04] MEDS: RANITIDINE 150 MG TAB PO SCH (08:46)
[2017-04-04 13:10] LABS: ADD SCAN DIFF NO
[2017-04-04] MEDS ORDERED: QUET100T32 PO (13:12)
[2017-04-04 13:13] LABS: BASOPHILS % 0.5 % (0.0-2.0); EOSINOPHILS # 0.1 10^3/ul (0.0-0.5); EOSINOPHILS % 1.9 % (0.0-7.0); HEMOGLOBIN 14.3 g/dl (14.0-18.0); LYMPHOCYTES # 1.5 10^3/ul (0.8-2.9); LYMPHOCYTES % 39.2 % (15.0-51.0); MEAN CORPUSCULAR HEMOGLOBIN 34.1 pg (29.0-33.0); MEAN CORPUSCULAR VOLUME 100.2 fl (82.0-101.0); MEAN PLATELET VOLUME 9.7 fl (7.4-10.4); MONOCYTE # 0.5 10^3/ul (0.3-0.9); MONOCYTES % 12.9 % (0.0-11.0); NEUTROPHIL # 1.7 10^3/ul (1.6-7.5); NEUTROPHILS % 45.2 % (39.0-77.0); PLATELET COUNT 162 10^3/UL (140-415); RED BLOOD COUNT 4.19 10^6/ul (4.70-6.10); RED CELL DISTRIBUTION WIDTH 13.7 % (11.5-14.5); WHITE BLOOD COUNT 3.7 10^3/ul (4.8-10.8)
--- NOTE | 2017-04-04 13:19 | DS ---
Date/Time of Note Date/Time of Note DATE: 04/04/17 TIME: 13:13 Discharge Summary Admission/Discharge Info Admit Date/Time Apr 03, 2017 at 16:28 Discharge Date/Time Discharge Diagnosis 1. Chest pain, atypical, negative troponin, follow up with PCP 2. Bipolar disorder, increase seroqal 3. HTN, controlled 4. Multisubstance abuse (tobacco / meth) 5. Dyslipidemia, on lipitor 6. GERD 7. COPD, stable 8. Parkinson's disease, on sinemet Patient Condition: Stable Hx of Present Illness 57-year-old male with a history of high blood pressure and dyslipidemia who comes into the emergency room today with complaints of 3 day history of anterior chest pain that is described as achy and intermittent. Patient does admit to regular amphetamine use, last use was yesterday. Pain is associated with occasional shortness of breath, no diaphoresis. Pain does affect his activity of daily living. Pain was relieved with medication given in the emergency room. Patient denies fever, cough, palpitations, dizziness, or syncopal episodes. Patient denies abdominal pain, dysuria or hematuria. Brain CT was done because patient had reported recent head bleed, however negative Hospital Course Chest pain is atypical for angina. Troponin is negative. ECG unremarkable. Echo with normal LVEF, moderate to severe MR. Patient had panic attack after admission, that he got larger dose of seroqual and xanax as needed. Symptoms improved. Home Meds Active Scripts Quetiapine Fumarate* (Quetiapine Fumarate*) 100 Mg Tablet, 100 MG PO TID for 30 Days, TAB Prov:VINH ZAVALETA MD 04/04/17 Reported Medications Omeprazole* (Omeprazole*) 20 Mg Capsule.dr, 20 MG PO DAILY, #30 CAP 04/01/17 Diphenhydramine Hcl* (Benadryl*) 50 Mg Cap, 50 MG PO TID Y for ITCHING, CAP 04/01/17 Salmeterol Xinaf/Fluticasone* (Advair*) 250-50 Diskus Inhaler, 1 INH INHALATION BID, #1 INHALER 04/01/17 Albuterol Sulfate* (Ventolin HFA*) 18 Gm Hfa.aer.ad, 2 PUFF INHALATION TID Y for SHORTNESS OF BREATH, #1 INHALER 04/01/17 Hydrochlorothiazide* (Hydrochlorothiazide*) 25 Mg Tab, 25 MG PO DAILY, #30 TAB 04/01/17 Tizanidine Hcl* (Tizanidine Hcl*) 4 Mg Tablet, 4 MG PO Q8H Y for SPASTICITY, TAB 04/01/17 Hydrocodone/Acetaminophen ([place] 5-325 Tablet) 1 Each Tablet, 1 EACH PO Q6 Y for PAIN, TAB 04/01/17 Escitalopram Oxalate* (Lexapro*) 20 Mg Tablet, 20 MG PO DAILY, #30 TAB 04/01/17 Ondansetron Hcl* (Zofran*) 8 Mg Tab, 8 MG PO Q8 Y for NAUSEA AND/OR VOMITING, TAB 04/01/17 Simvastatin* (Zocor*) 20 Mg Tablet, 20 MG PO QHS, #30 TAB 04/01/17 Nitroglycerin* (Nitrostat*) 0.4 Mg Tab.subl, 0.4 MG SL Q5MIN Y for CHEST PAIN, BOTTLE 04/01/17 Aclidinium [place] ([place] Pressair) 400 Mcg Aer.pow.ba, 400 MCG IH BID, EA 04/01/17 [place]-3/Dha/Epa/Fish Oil (FISH OIL EC 1,000 MG SOFTGEL) 1 Each Capsule.dr, 4 EACH PO DAILY 04/01/17 Magnesium Oxide* (Mag-Oxide*) 400 Mg Tablet, 250 MG PO BID, TAB 04/01/17 Lactulose* (Lactulose*) 10 Gm/15 Ml Solution, 10 GM PO BID, ML 04/01/17 Temazepam* (Temazepam*) 30 Mg Capsule, 30 MG PO HS Y for INSOMNIA, CAP 04/01/17 Amitriptyline Hcl* (Amitriptyline Hcl*) 50 Mg Tablet, 50 MG PO QHS, #30 TAB 04/01/17 Ranitidine Hcl* (Ranitidine Hcl*) 150 Mg Tablet, 150 MG PO Q12, #60 TAB 04/01/17 Quetiapine Fumarate* (Seroquel*) 100 Mg Tablet, 100 MG PO HS, #30 TAB 04/01/17 Carbidopa-Levodopa* (Sinemet*) 25-100 Mg Tab, 1 TAB PO TID, TAB 04/01/17 Levetiracetam* (Keppra*) 500 Mg Tablet, 500 MG PO BID, TAB 04/01/17 Follow-up Plan PCP in one week Primary Care Provider Not On Staff Doctor VINH ZAVALETA MD Apr 04, 2017 13:18
[2017-04-04 13:40] LABS: CALCIUM 9.3 mg/dl (8.4-10.2); CREATININE 0.96 mg/dl (0.61-1.24); POTASSIUM 4.3 mmol/L (3.5-5.1)
[2017-04-04] MEDS: LORAZEPAM 1 MG TAB PO PRN (14:51)
== END 2017-04-04 16:50 | DRG 313 ==
LOC: E/R 14:12 → MS4 16:21 → OBSVTOIN 04-03 16:28
PROVIDERS: ADMIT Family Medicine; ATTEND Family Medicine
DX: R07.89 Other chest pain (principal); G20 Parkinson's disease; F31.0 Bipolar disorder, current episode hypomanic; I10 Essential (primary) hypertension; F15.10 Other stimulant abuse, uncomplicated; Z72.0 Tobacco use; E78.5 Hyperlipidemia, unspecified; K21.9 Gastro-esophageal reflux disease without esophagitis; J44.9 Chronic obstructive pulmonary disease, unspecified
CPT/HCPCS: 36415; 70450; 71010; 80048; 80061; 80076; 80307; 82550; 82553; 83036; 83735; 84443; 84484; 85025; 85610; 85730; 87070; 93005; 93306; 96374; 96375; G0378; J1170; J2060; J2405; J7030